=== PATIENT | male | born 1960 | race Caucasian/White ===

== ENCOUNTER 2017-07-30 08:53 | Emergency (ER) | payer OTHER ==
[~2017-07-30] VITALS: Ht 185.4 cm; Wt 104.3 kg
[2017-07-30] MEDS ORDERED: Robaxin-750750 MG PO (10:29)
[2017-07-30] MEDS ORDERED: IBUP800 PO (10:29)
== END 2017-07-30 10:44 | disposition home or self-care (01) ==
LOC: ER 08:53
DX: S39.012A Strain of muscle, fascia and tendon of lower back, initial encounter (principal); E86.0 Dehydration; X58.XXXA Exposure to other specified factors, initial encounter
CPT/HCPCS: 72100; 99283

== ENCOUNTER 2018-10-22 09:53 | Day surgery (SDC) | payer OTHER ==
[~2018-10-22] VITALS: Ht 185.4 cm; Wt 92.2 kg
[~2018-10-22 09:53] MED LIST: IBUP800 PO; Robaxin-750750 MG PO; Zocor20 MG
== END 2018-10-22 13:11 | disposition home or self-care (01) ==
LOC: ORSCSDS 09:53
PROVIDERS: Student in an Organized Health Care Education/Training Program
PROC: 0DBL8ZX Excision of Transverse Colon, Via Natural or Artificial Opening Endoscopic, Diagnostic (ICD-10-PCS; principal; 2018-10-22 11:15)
PROC: 0DBN8ZX Excision of Sigmoid Colon, Via Natural or Artificial Opening Endoscopic, Diagnostic (ICD-10-PCS; principal; 2018-10-22 11:15)
DX: K92.1 Melena (principal); D12.3 Benign neoplasm of transverse colon; K63.5 Polyp of colon; K64.8 Other hemorrhoids; I10 Essential (primary) hypertension; Z79.899 Other long term (current) drug therapy
CPT/HCPCS: 88305; J2704; J7120